=== PATIENT | female | born 1950 | race Caucasian/White ===

== ENCOUNTER 2019-01-02 13:30 | Inpatient (IN) | payer MEDICARE ==
[2019-01-14] MEDS ORDERED: METOCLOPRAMIDE 10 MG TABLET PO ONE (06:00)
[2019-01-14] MEDS ORDERED: CEFAZOLIN 2 Gram 2 GM/50 ML BAG IVPB ONE (06:00)
[2019-01-14] MEDS ORDERED: VANCOMYCIN HCL 1,000 MG in DEXTROSE 5 % IN WATER 250 ML IVPB ONE ×2 (06:00)
[2019-01-14] MEDS ORDERED: FAMOTIDINE 20MG TABLET PO ONE (06:00)
[2019-01-14] MEDS ORDERED: MECLIZINE 25 MG TABLET PO ONE (06:00)
[2019-01-14] MEDS ORDERED: CELECOXIB 100 MG CAPSULE PO ONE (06:00)
[2019-01-14] MEDS ORDERED: 0.9 % SODIUM CHLORIDE 10 ML VIAL IVP ONE (14:00)
[2019-01-14] MEDS ORDERED: TRANEXAMIC ACID 1,000 MG/10 ML ML IV ONE (14:00)
[2019-02-25] MEDS ORDERED: MECLIZINE 25 MG TABLET PO ONE (06:00)
[2019-02-25] MEDS ORDERED: METOCLOPRAMIDE 10 MG TABLET PO ONE (06:00)
[2019-02-25] MEDS ORDERED: CELECOXIB 100 MG CAPSULE PO ONE (06:00)
[2019-02-25] MEDS ORDERED: ACETAMINOPHEN 1,000 MG/100 ML BTL IV ONE (06:00)
[2019-02-25] MEDS ORDERED: FAMOTIDINE 20MG TABLET PO ONE (06:00)
[2019-02-25] MEDS ORDERED: CEFAZOLIN 2 Gram 2 GM/50 ML BAG IVPB ONE (06:00)
[2019-02-25] MEDS ORDERED: VANCOMYCIN HCL 1,000 MG in DEXTROSE 5 % IN WATER 250 ML IVPB ONE ×2 (06:00)
[2019-02-25] MEDS ORDERED: RINGERS SOLUTION,LACTATED 1,000 ML IV ONE ×2 (07:26→10:02)
[2019-02-25 07:59] LABS: ABO GROUP O; ANTIBODY SCREEN NEGATIVE (NEGATIVE); RH TYPE POSITIVE
[2019-02-25] MEDS ORDERED: BUPIVACAINE 0.5% W/EPI MPF 30 ML VIAL SQ ONE (09:54)
[2019-02-25] MEDS ORDERED: NALOXONE 0.4 MG/1 ML VIAL IVP PRN (11:23)
[2019-02-25] MEDS ORDERED: MAGNESIUM HYDROXIDE 30 ML UDC PO PRN (11:23)
[2019-02-25] MEDS ORDERED: BISACODYL 10 MG SUPP RC PRN (11:23)
[2019-02-25] MEDS ORDERED: TRAMADOL HCL 50 MG TABLET PO PRN (11:23)
[2019-02-25] MEDS ORDERED: ZOLPIDEM TARTRATE 5 MG TABLET PO PRN (11:23)
[2019-02-25] MEDS ORDERED: DIPHENHYDRAMINE HCL 25 MG CAPSULE PO PRN (11:23)
[2019-02-25] MEDS ORDERED: HYDROMORPHONE HCL 2 MG/ML VIAL IM PRN (11:23)
[2019-02-25] MEDS ORDERED: KETOROLAC 30 MG/ML VIAL IVP PRN ×2 (11:23)
[2019-02-25] MEDS ORDERED: ACETAMINOPHEN 325 MG TAB PO PRN (11:23)
[2019-02-25] MEDS ORDERED: AL HYDROX/MAG HYDROX 30ML UD PO PRN (11:23)
[2019-02-25] MEDS ORDERED: HYDROCODONE/APAP 10/325 TABLET PO PRN ×2 (11:23)
[2019-02-25] MEDS ORDERED: ACETAMINOPHEN W/ CODEINE 300MG/60MG TABLET PO PRN ×2 (11:23)
[2019-02-25] MEDS ORDERED: ONDANSETRON HCL IV 4 MG/2 ML VIAL IVP PRN (11:23)
[2019-02-25] MEDS ORDERED: CEFAZOLIN 2 Gram 2 GM/50 ML BAG IVPB SCH (11:30)
[2019-02-25] MEDS ORDERED: POTASSIUM CHLORIDE/D5-0.9%NACL 20 MEQ/1,000 ML BAG IV SCH (12:00)
[2019-02-25] MEDS ORDERED: TRANEXAMIC ACID 1,000 MG/10 ML ML IV ONE ×2 (13:02→14:00)
[2019-02-25] MEDS ORDERED: MIDAZOLAM HCL 2MG/2ML VIAL IV ONE (14:00)
[2019-02-25] MEDS ORDERED: PROPOFOL 10 MG/ML VIAL IV ONE (14:00)
[2019-02-25] MEDS ORDERED: 0.9 % SODIUM CHLORIDE 10 ML VIAL IVP ONE ×2 (14:00→16:09)
[2019-02-25] MEDS ORDERED: KETAMINE HCL 100MG/1ML VIAL INJ ONE (14:00)
[2019-02-25] MEDS ORDERED: ROPIVACAINE HCL (NAROPIN) /PF 5MG/ML 20ML VIAL IV ONE (16:09)
[2019-02-25] MEDS ORDERED: DEXAMETHASONE 4 MG/ML 1ML VIAL IVP ONE (16:09)
[2019-02-25] MEDS: CEFAZOLIN 1G VIAL IVP SCH (16:36)
--- NOTE | 2019-02-25 17:02 | Rehab Evaluation ---
Patient Information - Patient Information Diagnosis: L Hip OA Ordered Treatment: PT Evaluate and Treat Status: Initial Evaluation Surgery: Yes (L THR) Date of Surgery: 02/25/19 Past Medical/Surgical Hx: PAST MEDICAL/SURGICAL HISTORY Past Surgical History CONE BX C SCOPE BREAST BX BENIGN PMH - Respiratory Hx Respiratory Disorders Yes Hx Bronchitis Yes: IN PAST Comment: ALLERGIES PMH - Cardiovascular Hx Cardiovascular Disorders Yes Hx Edema Yes: FEET AND ANKLES DEPENDENT Hx Hypertension Yes: ON MEDS GOOD CONTROL Hx Vascular Disease Yes: VENOUS INSUFFICENCY? Hx Heart Murmur Yes Exercise Tolerance Poor Comment: D/T HIP AND BACK PROBLEMS PMH - Neuro Hx Neurological Disorders Yes Hx Neuropathy Yes: FEET PMH - GI Hx Gastrointestinal Disorders Yes Hx Gastroesophageal Reflux Yes: OCCASSIONALLY PMH - Hx Genitourinary Disorders Yes Hx Bladder Problem Yes: LEAKS WEARS PADS PMH - Endocrine Hx Endocrine Disorders No Hx Diabetes No Hx Thyroid Disease No PMH - Musculoskeletal Hx Musculoskeletal Disorders Yes Hx Arthritis Yes: RIGHT HIP, HANDS, BACK, SHOULDERS PMH - Psych Hx Psychiatric Problems Yes Hx Anxiety Yes Hx Depression Yes PMH - Hematology/Oncology Hx Hematology/Oncology No Disorders Premorbid Status: Detail (The patient was independent with all mobility prior to surgery.) Social History: Detail (The patient lives with spouse in a one story house with 3 steps at the enterance and two railings with one railing within reach. The bathroom is equipped with a tub/shower combination, shower bench and elevated toilet. The patient has a walker with wheels and a standard cane.) Precautions: [place], Fall, Other (WBAT on the R LE, THR precautions.) - Time With Patient Total Time Spent With Patient (Min): 30 Treatment Procedures: Detail (Initial evaluation, mobility.) Subjective Information - Subjective Information Per Patient (The patient had complaints of lightheadedness with standing and sitting. The patient had no pain complaints.) Objective Data - Mental Status Patient Orientation: Oriented x3 - Strength/Tone Not within normal limits (The patient's R hip is within total hip replacement precautions.) - Bed Mobility Independent (The patient was independent with supine to and from sit transfer following THR precautions.) - Transfers Independent (The patient required verbal cues to push up from bed however was independent with sit to and from stand.) - Balance Balance Sitting: Good Balance Standing: Fair - Gait Detail (The patient did not ambulate due to lightheadness and decreased LE sensation. The patient stood to walker WBAT on the R LE.) Therapy Assessment - Therapy Assessment Detail (The patient was independent with bed mobility and transfers but did not ambulate due to lightheadedness. The patient is to ambulate with nursing staff this pm once symptoms of lightheadedness are gone. Feel the patient will progress well with mobility.) Problem List - Problem List Physical Therapy Problem List: Detail (1) Decreased R LE as to be expected s/p surgery. 2) Impaired ambulation s/p surgery.) Goals - Goals Physical Therapy Goals: 1) The patient will ambulate with assistive device WBAT on the R LE household distances independentlly. 2) The patient will ambulate on stairs with supervision for safety using proper technique. 3) The patient will be independent with all transfers. 4) The patient will be independent with THR HEP and demonstrate good understanding of precautions. Prognosis - Prognosis Good Plan - Plan Physical Therapy Plan: PT 1-2 sessions for gait training on levels and stairs and instruction in THR HEP.
[2019-02-25] MEDS ORDERED: ATORVASTATIN 20 MG TABLET PO SCH (22:00)
[2019-02-25] MEDS: DOCUSATE SODIUM 100 MG CAPSULE PO SCH (22:28)
[2019-02-26] MEDS: CEFAZOLIN 1G VIAL IVP SCH ×2 (01:20→11:45)
[2019-02-26 06:49] LABS: HEMOGLOBIN 10.7 gm/dl (11.6-16.0)
[2019-02-26 07:02] LABS: BLOOD UREA NITROGEN 12 mg/dL (8-23); CREATININE 0.6 mg/dL (0.5-0.9); EST GLOMERULAR FILTRATION RATE > 60 mL/min; GLUCOSE,RANDOM 163 mg/dL (74-109)
--- NOTE | 2019-02-26 08:41 | Operative Note ---
DATE OF SURGERY: 02/25/2019 PREOPERATIVE DIAGNOSIS: End-stage arthrosis of the right hip. POSTOPERATIVE DIAGNOSIS: End-stage arthrosis of the right hip. OPERATION: Cementless right total hip arthroplasty using Gallagher and Nephew components with a size 54 no-hole Reflection cup, 32 mm diameter 35-degree offset liner, a standard offset size 11 cementless Purdy stem with a +8 32 mm diameter Oxinium head. STAFF SURGEON: Melvin Doss MD ANESTHESIA: Spinal. PREPARATION: Chloraprep. INDIVIDUAL CONSIDERATIONS: This lady is morbidly obese with a body mass index well above 40. This made closure and exposure and manipulation much more difficult. She had areas where the fatty tissue was almost 4 inches thick. PROCEDURE: The patient was taken to the operating room, placed supine on the operating room table. She had a successful induction of spinal anesthetic. She was then placed on her side right side up, and her right leg and hip were prepped and draped in the usual fashion. The patient had direct posterior approach to the hip. Sharp dissection carried down through skin and abundant subcutaneous tissue. Small veins were coagulated with a Bovie. The tensor gluteal fascia was opened along the entire length of the incision, and deep retractors were placed. Short external rotators were identified, piriformis fossa removed exposing the posterior capsule. Posterior capsulectomy was performed. Hip was dislocated posteriorly. She basically had advanced arthrosis, large marginal osteophytes, and was devoid of cartilage. A femoral neck cut was then made freehand about a fingerbreadth above the lesser trochanter. A rim capsulectomy was performed. Starting with a 45 mm reamer to ream to the medial wall, I reamed to the introitus, which was 53 for a 54 cup. There was a decent bleeding bony bed. After thorough irrigation, I impacted a size 54 no-hole Reflection cup in 40 degrees of abduction and 20 degrees of forward flexion. There was stable cementless fixation. After irrigation, a center cap screw was placed and then I impacted a 32 mm diameter 35-degree offset highly crosslinked liner with the offset posteriorly inferiorly. This gave an excellent stable acetabular construct, and this was packed off. The proximal femur was delivered into the wound, and box cutting osteotome was used to remove the proximal metaphyseal bone. Mid stem reaming was done to an 11. I started feeling cortex actually right at 10 but 11 was the most I could get. I went ahead and broached to 11, which had a solid cementless fit. I went ahead and calcar reamed and with a +8, there was absolute stability. Removed the trial, irrigated out, and then impacted a size 11 regular offset Purdy stem with solid cementless fixation. Again, with a +8 neck trial, there was absolute stability. I had full stability when I flexed to her pedunculus and internally rotated as far as I could. Full stability with extension and external rotation. After thorough irrigation, I dried the Odilon taper and impacted a +8 Oxinium head on the Odilon taper. Reduced the hip with similar stability. Hemostasis was obtained with a Bovie. Sciatic nerve was inspected and found to be completely intact. The tensor gluteal fascia was then closed with a running #2 quill. I did mix 1 g of tranexamic acid with 30 mL of saline and placed this deep in the fascia. The abundant subcu was closed in multiple layers running 0 quill, skin was closed with charlette. Skin and subcu were infiltrated with 30 mL of 0.5% Marcaine with epinephrine prior to closure. Sterile bulky compressive CARMEN-type dressing was applied. The patient tolerated the procedure well. Needle and sponge counts were correct. Estimated blood loss was 500 mL. We will check hemoglobin in the morning. There were no complications. MILLA
[2019-02-26] MEDS: DOCUSATE SODIUM 100 MG CAPSULE PO SCH (09:15)
[2019-02-26] MEDS ORDERED: FUROSEMIDE 40 MG TABLET PO SCH (10:00)
[2019-02-26] MEDS ORDERED: RIVAROXABAN 10 MG TABLET PO SCH (10:00)
[2019-02-26] MEDS ORDERED: LISINOPRIL 20 MG TABLET PO SCH (10:00)
[2019-02-26] MEDS ORDERED: FERROUS SULFATE 325 MG TAB PO SCH (10:00)
[2019-02-26] MEDS ORDERED: MAGNESIUM OXIDE 400 MG TABLET PO SCH (10:00)
[2019-02-26] MEDS ORDERED: DULOXETINE HCL 30 MG CAPSULE.DR PO SCH (10:00)
[2019-02-26] MEDS ORDERED: HYDROCHLOROTHIAZIDE 12.5 MG CAPSULE PO SCH (10:00)
--- NOTE | 2019-02-26 10:43 | Rehab Evaluation ---
Patient Information - Patient Information Diagnosis: R Hip OA Ordered Treatment: OT Evaluate and Treat Status: Initial Evaluation Surgery: Yes (R THR) Date of Surgery: 02/25/19 Past Medical/Surgical Hx: PAST MEDICAL/SURGICAL HISTORY Past Surgical History CONE BX C SCOPE BREAST BX BENIGN PMH - Respiratory Hx Respiratory Disorders Yes Hx Bronchitis Yes: IN PAST Comment: ALLERGIES PMH - Cardiovascular Hx Cardiovascular Disorders Yes Hx Edema Yes: FEET AND ANKLES DEPENDENT Hx Hypertension Yes: ON MEDS GOOD CONTROL Hx Vascular Disease Yes: VENOUS INSUFFICENCY? Hx Heart Murmur Yes Exercise Tolerance Poor Comment: D/T HIP AND BACK PROBLEMS PMH - Neuro Hx Neurological Disorders Yes Hx Neuropathy Yes: FEET PMH - GI Hx Gastrointestinal Disorders Yes Hx Gastroesophageal Reflux Yes: OCCASSIONALLY PMH - Hx Genitourinary Disorders Yes Hx Bladder Problem Yes: LEAKS WEARS PADS PMH - Endocrine Hx Endocrine Disorders No Hx Diabetes No Hx Thyroid Disease No PMH - Musculoskeletal Hx Musculoskeletal Disorders Yes Hx Arthritis Yes: RIGHT HIP, HANDS, BACK, SHOULDERS PMH - Psych Hx Psychiatric Problems Yes Hx Anxiety Yes Hx Depression Yes PMH - Hematology/Oncology Hx Hematology/Oncology No Disorders Premorbid Status: Detail (The patient was independent with all ADLs and mobility prior to surgery.) Social History: Detail (The patient lives with spouse in a one story house with 3 steps at the entrance and two railings with one railing within reach. The bathroom is equipped with a tub/shower combination, hand-held shower hose, tub TF bench and elevated toilet. There are no GBs in the tub or near the toilet. The patient has a FWW and a standard cane. Spouse Ross will assist all IADLs at [place].) Precautions: [place], Fall, Other (WBAT on the R LE, THR precautions.) - Time With Patient Total Time Spent With Patient (Min): 38 (1 Eval 1 SC) Treatment Procedures: Detail (OT eval: low complexity) Subjective Information - Subjective Information Per Patient (OK to see per DION Mccall. Pt agreeable to OT eval and Tx.) Objective Data - Pain Pain Present: Yes Pain Scale Used: Numeric (1 - 10) (2/10 with mvmt, 0/10 at rest) - Mental Status Patient Orientation: Oriented x3 - Visual Perception Appears within normal limits for therapeutic activities - ROM Within normal limits (Pt reports previous shoulder injury and decreased ability to tuck in back of pants, otherwise WNL ROM all UE joints.) - Strength/Tone Within normal limits - Coordination Appears within normal limits for therapeutic activities - Bed Mobility Independent (supine >< EOB without assist, good awareness of ANDRES prec.) - Transfers Independent (sit >< stand from elevated surfaces with good awareness of hip prec., OT educ. Pt on kicking R leg out when sitting on low surfaces to avoid breaking hip prec.) - Balance Balance Sitting: Good Balance Standing: Good - Sensation Intact - Gait Detail (Fxl amb. within bedroom with FWW and supervision) - ADL's/IADL's Detail (OT educ. Pt on AE for LB dress, Pt demos ability to don/doff socks, pants, and shoes with mod I - AE and increased time. OT educ. Pt on adaptive elastic shoelaces, Pt reports spouse will assist with shoe tying. OT educ. Pt on mod techs. for toilet TF, car TF, and for kitchen, bathroom, and laundry safety at home.) Therapy Assessment - Therapy Assessment Detail (Pt demos safety and mod I with LB dressing and verbalizes safe tech. for home tasks. Pt appears somewhat anxious but decreases at end of session with education. Pt safe for DC home with spouse assist as needed.) Problem List - Problem List Physical Therapy Problem List: Detail (1) Decreased R LE as to be expected s/p surgery. 2) Impaired ambulation s/p surgery.) Occupational Therapy Problem List: Detail (No further inpatient OT needs idnetified. [place] OT services.) Goals - Goals Physical Therapy Goals: 1) The patient will ambulate with assistive device WBAT on the R LE household distances independentlly. 2) The patient will ambulate on stairs with supervision for safety using proper technique. 3) The patient will be independent with all transfers. 4) The patient will be independent with THR HEP and demonstrate good understanding of precautions. Occupational Therapy Goals: No further inpatient OT needs idnetified. [place] OT services. Prognosis - Prognosis Good Plan - Plan Physical Therapy Plan: PT 1-2 sessions for gait training on levels and stairs and instruction in THR HEP. Occupational Therapy Plan: No further inpatient OT needs identified. [place] inpatient OT services. Thank you for this referral.
--- NOTE | 2019-02-26 12:03 | Physical Therapy Tx Note ---
Physical Therapy Tx Note - Treatment Note Tolerated: Good Total Time Spent With Patient: 20 Physical Therapy Tx Note: Detail (Patient was seated in chair upon MANAGER C[employer]ER [employer]ICE arrival. Patient transferred sit to and from stand CGA x1. Patient ambulated 90 feet with wheeled walker CGA x1. Patient descended and ascended 3 steps CGA x1 with using stairwell railing and walker. Patient performed the following exercises seated on edge of bed x10 reps each: ankle pumps, heel slides, glut squeezes, quad sets, hip abduction ROM, and hamstring sets. Patient tolerated treatment well. Patient displays good understanding of HEP and stair climbing. Patient was left seated on bed with call light within reach. Patient has passed all inpatient PT goals. Patient discharged from inpatient PT at this time.) Physical Therapy Problem List: Detail (1) Decreased R LE as to be expected s/p surgery. 2) Impaired ambulation s/p surgery.) Physical Therapy Goals: 1) The patient will ambulate with assistive device WBAT on the R LE household distances independentlly. 2) The patient will ambulate on stairs with supervision for safety using proper technique. 3) The patient will be independent with all transfers. 4) The patient will be independent with THR HEP and demonstrate good understanding of precautions. Prognosis: Good Physical Therapy Plan: Patient discharged from inpatient PT at this time as all goals are met.
--- NOTE | 2019-02-28 10:00 | Discharge Summary ---
DATE OF ADMISSION: 02/25/2019 DATE OF DISCHARGE: 02/26/2019 FINAL DIAGNOSES/PRIMARY DIAGNOSES: 1. Endstage arthrosis of the right hip. 2. Operative blood loss anemia. OPERATIONS AND PROCEDURES: Cementless right total hip arthroplasty. HISTORY OF PRESENT ILLNESS: The patient is a delightful 68-year-old female who presents with endstage arthrosis of her right hip. She was admitted after right total hip arthroplasty. Postoperatively, she did phenomenally well. Her hospital course is unremarkable. Discharge hemoglobin is 10.3. Did not require transfusion. PLAN: Discharge her to home in care of her family. Home PT and visiting nurse has been arranged. She will be given Ultram for pain, Xarelto followed by aspirin for DVT prophylaxis and she will follow up in my office in 4 weeks. Visiting nurse to remove her sutures in 2 weeks. MILLA
== END 2019-02-26 14:05 | disposition home health service (06) | DRG 470 ==
LOC: MEDSURG 02-25 06:55
PROVIDERS: ADMIT Orthopaedic Surgery; ATTEND Orthopaedic Surgery
PROC: 0SR906A Replacement of Right Hip Joint with Oxidized Zirconium on Polyethylene Synthetic Substitute, Uncemented, Open Approach (ICD-10-PCS; principal; 2019-02-25 09:00)
DX: M16.11 Unilateral primary osteoarthritis, right hip (principal); I10 Essential (primary) hypertension; E78.00 Pure hypercholesterolemia, unspecified; R60.9 Edema, unspecified; E66.01 Morbid (severe) obesity due to excess calories
CPT/HCPCS: 76942; 80048; 85014; 85018; 86850; 86900; 86901; 97530; 97535; C1776; J0690; J3480; J3490; J7060; J7120